=== PATIENT | male | born 1970 | race Hispanic/Latino ===

== ENCOUNTER 2022-04-13 13:00 | Outpatient (CLI) | payer OTHER, SELFPAY | END 2022-04-17 11:54 | disposition home or self-care (01) | LOC: PHYS 13:03 | PROVIDERS: Family Provider General Practice; PCP General Practice; Referring Provider General Practice; Visit Provider General Practice | DX: G56.03 Carpal tunnel syndrome, bilateral upper limbs (principal) | CPT/HCPCS: 95886; 95911 ==

== ENCOUNTER → 2023-01-12 11:07 | Outpatient (CLI) | payer OTHER, SELFPAY ==
--- NOTE | 2023-01-12 | DI.RAD.S_ITS ---
PROCEDURE: XR HAND LT 2V INDICATIONS: L MIDDLE FINGER FX TECHNIQUE: 2 views of the hand(s) acquired. COMPARISON: None. FINDINGS: Bones: No fractures or dislocations. Carpal bones are normally aligned. No suspicious bony lesions. Soft tissues: No suspicious soft tissue calcifications. Soft tissue swelling. IMPRESSION: No definitive fracture is identified. If clinical symptoms persist or clinical suspicion for pathology is high, consider advanced imaging such as CT or MRI. Dictated by: Irais Porras M.D. on 01/29/2023 at 12:01 Approved by: Irais Porras M.D. on 01/29/2023 at 12:06
== END ==
PROVIDERS: Family Provider General Practice; PCP General Practice; Referring Provider Chiropractor; Visit Provider Chiropractor
DX: S62.603A Fracture of unspecified phalanx of left middle finger, initial encounter for closed fracture (principal)
CPT/HCPCS: 73120